=== PATIENT | male | born 1935 | race Caucasian/White ===

== ENCOUNTER 2021-10-04 09:33 | Outpatient (CLI) | payer MEDICARE | END 2021-10-04 09:34 | disposition home or self-care (01) | LOC: CSHLAB 09:33 | PROVIDERS: ATTEND Internal Medicine Critical Care Medicine | DX: Z20.822 Contact with and (suspected) exposure to COVID-19 (principal); Z53.9 Procedure and treatment not carried out, unspecified reason ==

== ENCOUNTER 2022-04-26 13:08 | Outpatient (CLI) | payer MEDICARE ==
[2022-04-26] MEDS ORDERED: Magnevist 469MG/ML 20 ML VIAL ONE (14:42)
== END 2022-04-26 13:09 | disposition home or self-care (01) ==
LOC: CSHSPEC 13:08
PROVIDERS: ATTEND Psychiatry & Neurology Neurology
DX: G43.109 Migraine with aura, not intractable, without status migrainosus (principal); Z95.0 Presence of cardiac pacemaker; G31.89 Other specified degenerative diseases of nervous system; I67.82 Cerebral ischemia; R90.82 White matter disease, unspecified; Z86.73 Personal history of transient ischemic attack (TIA), and cerebral infarction without residual deficits
CPT/HCPCS: 70553; 71045; A9579